=== PATIENT | male | born 1995 | race Hispanic/Latino ===

== ENCOUNTER 2018-12-29 09:17 | Outpatient (CLI) | payer OTHER ==
--- NOTE | 2018-12-29 09:51 | ULT ---
RENAL ULTRASOUND: History: Chronic renal disease. FINDINGS: Real-time imaging of the right and left kidneys were performed. The right kidney measures 10.5 and th e left kidney 11.8 cm in size. There is a 2.5 cm cyst involving the right kidney. Bladder regions popeye ears unremarkable. IMPRESSION: 2.5 cm right renal cyst, otherwise unremarkable exam. POS: [facility]
== END 2018-12-29 09:18 | disposition home or self-care (01) ==
LOC: BICULT 09:17
PROVIDERS: ATTEND Internal Medicine Nephrology
DX: N18.6 End stage renal disease (principal); N28.1 Cyst of kidney, acquired
CPT/HCPCS: 36415; 76770; 80048; 81001; 82570; 83930; 83935; 84156